=== PATIENT | male | born 1960 | race Caucasian/White ===

== ENCOUNTER → 2016-12-16 | Outpatient (CLI) | payer BC ==
[~2016-12-16] MED LIST: CORGARD 40MG TA40 MG PO; RAMIPRIL2.5 MG PO; TRICOR 145 MG145 MG NG; ZANTAC 150150 MG PO
[2016-12-16 17:13] LABS: BUN 18 mg/dL (7-18)
[2016-12-16 17:18] LABS: GFR (ESTIMATED) 53 ML/MIN (>60)
[2016-12-16 20:59] LABS: HEMOGLOBIN 14.1 g/dL (14.1-18.0); LYMPH # 3.1 K/mm3 (0.7-4.5); LYMPH % 33.3 % (10-50)
[2016-12-18 16:36] LABS: Albumin 3.7 g/dL (2.9-4.4); Alpha-1-Globulin 0.2 g/dL (0.0-0.4); Alpha-2-Globulin 0.7 g/dL (0.4-1.0); Gamma Globulin 1.7 g/dL (0.4-1.8); Protein, Total 7.6 g/dL (6.0-8.5)
== END ==
LOC: LAB 14:50
PROVIDERS: Internal Medicine
DX: C90.00 Multiple myeloma not having achieved remission (principal)